=== PATIENT | female | born 1995 | race Caucasian/White ===

== ENCOUNTER 2022-05-06 11:09 | Emergency (ER) | payer BC, OTHER, SELFPAY ==
[2022-05-06 13:32] LABS: SARS-CoV-2 NAA Rapid Test Not Detected (NotDetected)
== END 2022-05-06 12:34 | disposition home or self-care (01) ==
LOC: BURERS 11:09
DX: R05.1 Acute cough (principal); Z20.822 Contact with and (suspected) exposure to COVID-19
CPT/HCPCS: 99283